=== PATIENT | male | born 1965 | race Caucasian/White ===

== ENCOUNTER 2016-12-15 12:11 | Outpatient (CLI) | payer OTHER | END 2016-12-15 12:12 | disposition home or self-care (01) | DX: Z00.00 Encounter for general adult medical examination without abnormal findings (principal); Z80.42 Family history of malignant neoplasm of prostate; Z12.5 Encounter for screening for malignant neoplasm of prostate ==

== ENCOUNTER 2017-02-17 09:47 | Day surgery (SDC) | payer OTHER ==
[2017-02-17] MEDS ORDERED: LACTATED RINGERS 1,000 ML IV ONE (10:24)
[2017-02-17] MEDS ORDERED: fentaNYL 100 MCG/2 ML VIAL IVP ONE (10:40)
[2017-02-17] MEDS ORDERED: MIDAZOLAM 2 MG/2 ML VIAL IVP ONE (10:40)
[2017-02-17 11:25] VITALS: BP 105/76
== END 2017-02-17 09:48 | disposition home or self-care (01) ==
LOC: SDS 09:47
PROVIDERS: ATTEND Surgery
PROC: 0DJD8ZZ Inspection of Lower Intestinal Tract, Via Natural or Artificial Opening Endoscopic (ICD-10-PCS; principal; 2017-02-17 10:45)
DX: Z12.11 Encounter for screening for malignant neoplasm of colon (principal); K64.8 Other hemorrhoids; Z87.891 Personal history of nicotine dependence; F32.9 Major depressive disorder, single episode, unspecified; F41.9 Anxiety disorder, unspecified; K21.9 Gastro-esophageal reflux disease without esophagitis
CPT/HCPCS: 45378; J7120